=== PATIENT | female | born 1980 | race American Indian/Alaskan Native ===

== ENCOUNTER 2021-12-14 17:38 | Inpatient (IN) | payer OTHER ==
[2021-12-14] MEDS ORDERED: fentaNYL 100 MCG/2 ML INJ IV PRN (18:11)
[2021-12-14] MEDS ORDERED: DINOPROSTONE 10 MG VAG SUPP VG ONE (18:11)
[2021-12-14] MEDS ORDERED: MINERAL OIL 30 ML ORAL LIQD PO PRN (18:11)
[2021-12-14] MEDS ORDERED: LOPERAMIDE 2 MG CAP PO PRN (18:11)
[2021-12-14] MEDS ORDERED: TERBUTALINE 1 MG/1 ML INJ SUB-Q PRN (18:11)
[2021-12-14] MEDS ORDERED: LIDOCAINE (2%) 20 MG/1 ML VIAL 20 ML MDV INFILTRATI ONE (18:11)
[2021-12-14] MEDS ORDERED: METHYLERGONOVINE MALEATE 0.2 MG/ML VIAL IM PRN (18:11)
[2021-12-14] MEDS ORDERED: OXYTOCIN 10 UNIT/1 ML INJ IM PRN (18:11)
[2021-12-14] MEDS ORDERED: ACETAMINOPHEN 325 MG TAB PO PRN (18:11)
[2021-12-14] MEDS ORDERED: ePHEDrine SULFATE 50 MG/1 ML INJ IV PRN (18:11)
[2021-12-14] MEDS ORDERED: NalbUPHINE 10 MG/1 ML INJ IV PRN (18:11)
[2021-12-14] MEDS ORDERED: CARBOPROST TROMETHAMINE 250 MCG/1 ML INJ IM PRN (18:11)
[2021-12-14] MEDS ORDERED: miSOPROStol 200 MCG TAB PR PRN (18:11)
--- NOTE | 2021-12-14 18:19 | History and Physical Report ---
History of Present Illness Date of examination: 12/14/21 Chief complaint: Pt sent from [facility] for delivery d/t uncontrolled HTN @ 37+4 History of present illness: EDC Confirmation: 12/31/2021 Past History : 3 Term Births: 0 Premature Births: 0 Living Children: 0 Para: 0 Mult. Births: 0 Prev : 0 Prev. attempt? 0 Aborta: 0 Elect. Ab: 0 Spont. Ab: 2 Ectopics: 0 # 1 Delivery date: 2015 Weeks Gestation: 8 Delivery type: SAB # 2 Delivery date: 2018 Weeks Gestation: 5-6 Delivery type: SAB Past Medical History: Reviewed and updated today: PCOS Past Surgical History: Reviewed and updated today: negative Family History Summary: Father - Has Family History of Hypertension - Entered On: 08/30/2021 General Comments - FH: Mother - HTN Social History: Patient is Smoking History: Patient has never smoked. 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 % No Dietary Counseling Reason: pn yes Alcohol Use: no Drug Use: no Past Medical History Anesthesia Complications: negative Anemia: negative Autoimmune Disorder: negative Bleeding Disorder: negative Blood Transfusions: negative Breast Disease: negative Diabetes: negative Heart Disease: negative Hypertension: negative Hepatitis/Liver Disease: negative Kidney Disease/UTI: negative Neurologic/Epilepsy/Migraines: negative Phlebitis/Varicosities: negative Psychiatric: negative Pulmonary Disease/Asthma: negative Thyroid Disease: negative Hospitalizations: negative 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 Infection History Hx of STD: none HIV Risk Eval: no Hepatitis B Risk Eval: low risk Personal hx. of genital herpes: no Rash, Viral, or Febrile illness since last LMP? no Varicella/Chicken Pox Status: Previous Disease TB Risk: no Genetic History ADVANCED MATERNAL AGE Congenital Heart Defect: Mom: no Dad: no Sahil Disease: Mom: no Dad: no Thalassemia Mom: no Dad: no Neural Tube Defect Mom: no Dad: no Down's Syndrome Mom: no Dad: no Tristan-Sachs Mom: no Dad: no Sickle Cell Disease/Trait Mom: no Dad: no Hemophilia Mom: no Dad: no Muscular Dystrophy Mom: no Dad: no Cystic Fibrosis Mom: no Dad: no Gurpreet Chorea Mom: no Dad: no Mental Retardation Mom: no Dad: no Fragile X Mom: no Dad: no Other Genetic/Chromosomal Disorder Mom: no Dad: no Child w/other defect Mom: no Dad: no Enviromental Exposures Enviromental Exposures Reviewed Xray Exposure: no Medication, drug, or alcohol use since LMP: no Chemical/Other Exposure: no Exposure to Cat Liter: no Hx of Parvovirus (Fifth Disease): no 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 Medications (reviewed today): None Past History Past Medical History: other (see HPI) Past Surgical History: other (see HPI) 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 (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 HPI) Family/Genetic History: other (see HPI) Social history: no significant social history - Obstetrical History Expected Date of Delivery: 12/31/21 Actual Gestation: 37 Week(s) 5 Day(s) : 3 Para: 0 Hx # Term Pregnancies: 0 Number of Pregnancies: 0 Spontaneous Abortions: 2 Induced : 0 Number of Living Children: 0 Medications and Allergies Allergies Allergy/AdvReac Type Severity Reaction Status Date / Time No Known Allergies Allergy Unverified 12/14/21 18:29 Active Meds: Active Medications Acetaminophen (Acetaminophen 325 Mg Tab) 650 mg PO Q4H PRN PRN Reason: Pain, Mild (1-3) Carboprost Tromethamine (Carboprost Tromethamine 250 Mcg/1 Ml Inj) 250 mcg IM ONCE PRN PRN Reason: Uterine Bleeding Dinoprostone (Dinoprostone 10 Mg Vag Supp) 10 mg VG ONCE ONE Stop: 12/14/21 18:12 Ephedrine Sulfate (Ephedrine Sulfate 50 Mg/1 Ml Inj) 10 mg IV Q2M PRN PRN Reason: Hypotension Fentanyl (Fentanyl 100 Mcg/2 Ml Inj) 100 mcg IV Q2H PRN PRN Reason: Pain,Severe (7-10) LABOR PAIN Oxytocin/Sodium Chloride (Pitocin/Ns 30 Unit/500ml) 30 units in 500 mls @ 2 mls/hr IV TITR TAINA; Protocol Lactated Ringer's (Lactated Ringers) 1,000 mls @ 125 mls/hr IV DIRECT TAINA Oxytocin/Sodium Chloride (Pitocin/Ns 30 Unit/500ml) 30 units in 500 mls @ 40 mls/hr IV TITR TAINA; Protocol Labetalol HCl (Labetalol 200 Mg Tab) 200 mg PO BID TAINA Lidocaine (Lidocaine (2%) 20 Mg/1 Ml Vial 20 Ml Mdv) 20 ml INFILTRATI ONCE ONE Stop: 12/14/21 18:12 Loperamide HCl (Loperamide 2 Mg Cap) 2 mg PO ONCE PRN PRN Reason: give with Hemabate Methylergonovine Maleate (Methylergonovine Maleate 0.2 Mg/Ml Vial) 0.2 mg IM ONCE PRN PRN Reason: Uterine Bleeding Mineral Oil (Mineral Oil 30 Ml Oral Liqd) 30 ml PO QHS PRN PRN Reason: Constipation Misoprostol (Misoprostol 200 Mcg Tab) 800 mcg VA ONCE PRN PRN Reason: Uterine Bleeding Nalbuphine HCl (Nalbuphine 10 Mg/1 Ml Inj) 10 mg IV Q2H PRN PRN Reason: Pain, Moderate (4-6) Oxytocin (Oxytocin 10 Unit/1 Ml Inj) 10 unit IM ONCE PRN PRN Reason: Uterine Bleeding Terbutaline Sulfate (Terbutaline 1 Mg/1 Ml Inj) 0.25 mg SUB-Q ONCE PRN PRN Reason: Hyperstimulation/Hypertonicity Review of Systems All systems: negative - Physical Exam Breasts: Positive: normal Abdomen: Positive: normal appearance, soft Genitourinary (Female): Positive: normal external genitalia - Obstetrical FHR: category 1 Uterine Contraction Monitor Mode: External Cervical Dilatation: 2 Cervical Effacement Percentage: 60 station: -2 Uterine Contraction Pattern: Irregular Uterine Tone Measurement Phase: Contraction Uterine Contraction Intensity: Mild Results Result Diagrams: 12/14/21 21:30 12/14/21 21:30 All other labs normal. Assessment and Plan 41y/o @37+4 sent from [facility] for IOL d/t uncontrolled CHTN. GBS neg. - Patient Problems (1) 37 weeks gestation of Current Visit: Yes Status: Acute (2) Advanced maternal age (AMA) in Current Visit: Yes Status: Acute (3) Hypertension affecting in third trimester Current Visit: Yes Status: Acute Plan to address problem: baseline pre-e labs closely monitor b/p and s/s pre-e Labetalol 200mg PO BID IOL with Low dose pitocin tonight, reassess PRN.
[2021-12-14] MEDS ORDERED: OXYTOCIN DRIP 30 UNITS/500 ML BAG IV SCH (19:00)
[2021-12-14] MEDS ORDERED: OXYTOCIN DRIP 30,000 MILLIUNITS/500 ML BAG IV SCH (22:05)
[2021-12-14] MEDS: ALUM-MAG HYDROXIDE-SIMETHICONE 200-200-20MG/5ML ORAL LIQD 30 ML PO PRN (22:41)
[2021-12-14 23:31] LABS: Bilirubin,Urine NEG (Negative); Blood,Urine NEG (Negative); Color,Urine Yellow (Yellow); Hematocrit 36.9 % (30.3-42.9); Hemoglobin 12.6 gm/dl (10.1-14.3); Mean Corpuscular HGB Conc 34 % (30-34); Mean Corpuscular Volume 92 fl (79-97); Platelet Count 239 K/mm3 (140-440); Protein,Urine <15 mg/dL mg/dL (Negative); Red Blood Count 4.03 M/mm3 (3.65-5.03); Red Cell Distribution Width 14.4 % (13.2-15.2); Urobilinogen,Urine < 2.0 mg/dL (<2.0); WBC,Urine < 1.0 /HPF (0.0-6.0)
[2021-12-14 23:48] LABS: Alanine Aminotransferase 21 units/L (7-56)
[2021-12-14] MEDS: OXYTOCIN DRIP 30 UNITS/500 ML BAG IV SCH (23:50)
[2021-12-15 00:37] LABS: Uric Acid 4.4 mg/dL (3.5-7.6)
[2021-12-15] MEDS: ALUM-MAG HYDROXIDE-SIMETHICONE 200-200-20MG/5ML ORAL LIQD 30 ML PO PRN ×3 (02:33→18:34)
--- NOTE | 2021-12-15 08:12 | Progress Note ---
Assessment and Plan Pt smiling and reporting mild contractions. Pt reports recent cervical exam completed by RN. Exam deferred. POC d/w pt. Questions encouraged and answered. Pt verbalizes understanding. Pt reports desires to increase Pitocin and continue IOL this time. Declines am care. Orders given to increase Pitocin per protocol. Continue Labetalol 200mg BID, monitor BP and ssx for worsening status. Dr Toscano to be made aware. - Patient Problems (1) 37 weeks gestation of Current Visit: Yes Status: Acute (2) Advanced maternal age (AMA) in Current Visit: Yes Status: Acute (3) Hypertension affecting in third trimester Current Visit: Yes Status: Acute Subjective - Subjective Date of service: 12/15/21 Principal diagnosis: IUP @37wks, IOL for GHTN without severe features Patient reports: movement normal, contractions, no new complaints, no loss of fluid, no vaginal bleeding Objective - Vital Signs Vital Signs: Vital Signs - 12hr 12/14/21 12/14/21 12/14/21 21:27 21:36 21:41 Temperature 98.7 F Pulse Rate 80 75 Blood Pressure O2 Sat by Pulse 99 97 Oximetry 12/14/21 12/14/21 12/14/21 21:46 21:51 21:56 Temperature Pulse Rate 90 84 88 Blood Pressure O2 Sat by Pulse 97 97 98 Oximetry 12/14/21 12/14/21 12/14/21 22:01 22:06 22:11 Temperature Pulse Rate 101 H 100 H 98 H Blood Pressure O2 Sat by Pulse 97 98 97 Oximetry 12/14/21 12/14/21 12/14/21 22:16 22:21 22:26 Temperature Pulse Rate 96 H 92 H 95 H Blood Pressure O2 Sat by Pulse 96 98 98 Oximetry 12/14/21 12/14/21 12/14/21 22:31 22:36 22:41 Temperature Pulse Rate 105 H 94 H 106 H Blood Pressure 140/98 O2 Sat by Pulse 97 98 98 Oximetry 12/14/21 12/14/21 12/14/21 22:43 22:46 22:51 Temperature Pulse Rate 93 H 98 H 97 H Blood Pressure 140/98 O2 Sat by Pulse 98 97 Oximetry 12/14/21 12/14/21 12/14/21 22:56 23:01 23:06 Temperature Pulse Rate 91 H 89 98 H Blood Pressure O2 Sat by Pulse 97 98 98 Oximetry 12/14/21 12/14/21 12/14/21 23:11 23:16 23:21 Temperature Pulse Rate 79 89 100 H Blood Pressure O2 Sat by Pulse 97 98 98 Oximetry 12/14/21 12/14/21 12/14/21 23:26 23:31 23:36 Temperature Pulse Rate 93 H 95 H 94 H Blood Pressure O2 Sat by Pulse 97 97 97 Oximetry 12/14/21 12/14/21 12/14/21 23:41 23:47 23:52 Temperature Pulse Rate 103 H 99 H 90 Blood Pressure O2 Sat by Pulse 97 96 97 Oximetry 12/14/21 12/14/21 12/15/21 23:57 23:58 00:02 Temperature Pulse Rate 99 H 87 98 H Blood Pressure 145/85 O2 Sat by Pulse 96 94 97 Oximetry 12/15/21 12/15/21 12/15/21 00:07 00:12 00:17 Temperature Pulse Rate 90 99 H 89 Blood Pressure O2 Sat by Pulse 96 97 96 Oximetry 12/15/21 12/15/21 12/15/21 00:22 00:27 00:32 Temperature Pulse Rate 88 85 82 Blood Pressure O2 Sat by Pulse 96 96 96 Oximetry 12/15/21 12/15/21 12/15/21 00:37 00:38 00:42 Temperature Pulse Rate 89 85 78 Blood Pressure O2 Sat by Pulse 94 94 96 Oximetry 12/15/21 12/15/21 12/15/21 00:47 00:52 00:57 Temperature Pulse Rate 84 86 84 Blood Pressure O2 Sat by Pulse 96 96 96 Oximetry 12/15/21 12/15/21 12/15/21 01:02 01:07 01:12 Temperature Pulse Rate 83 100 H 104 H Blood Pressure O2 Sat by Pulse 97 97 97 Oximetry 12/15/21 12/15/21 12/15/21 01:19 01:20 01:24 Temperature Pulse Rate 100 H 88 95 H Blood Pressure 144/73 O2 Sat by Pulse 98 97 Oximetry 12/15/21 12/15/21 12/15/21 01:29 01:34 01:39 Temperature Pulse Rate 92 H 94 H 86 Blood Pressure O2 Sat by Pulse 97 97 97 Oximetry 12/15/21 12/15/21 12/15/21 01:44 01:49 01:54 Temperature Pulse Rate 86 95 H 95 H Blood Pressure O2 Sat by Pulse 97 96 96 Oximetry 12/15/21 12/15/21 12/15/21 01:59 02:04 02:09 Temperature Pulse Rate 88 85 91 H Blood Pressure O2 Sat by Pulse 97 97 96 Oximetry 12/15/21 12/15/21 12/15/21 02:14 02:19 02:24 Temperature Pulse Rate 104 H 99 H 91 H Blood Pressure 132/76 O2 Sat by Pulse 97 96 97 Oximetry 12/15/21 12/15/21 12/15/21 02:29 02:34 02:39 Temperature Pulse Rate 96 H 107 H 92 H Blood Pressure O2 Sat by Pulse 96 97 97 Oximetry 12/15/21 12/15/21 12/15/21 02:44 02:49 02:54 Temperature Pulse Rate 92 H 89 82 Blood Pressure O2 Sat by Pulse 97 97 97 Oximetry 12/15/21 12/15/21 12/15/21 02:59 03:04 03:09 Temperature Pulse Rate 85 84 84 Blood Pressure O2 Sat by Pulse 97 97 97 Oximetry 12/15/21 12/15/21 12/15/21 03:14 03:19 03:24 Temperature Pulse Rate 90 84 81 Blood Pressure O2 Sat by Pulse 97 97 97 Oximetry 12/15/21 12/15/21 12/15/21 03:29 03:34 03:39 Temperature Pulse Rate 82 83 85 Blood Pressure O2 Sat by Pulse 97 97 97 Oximetry 12/15/21 12/15/21 12/15/21 03:44 03:49 03:54 Temperature Pulse Rate 82 85 95 H Blood Pressure O2 Sat by Pulse 97 97 97 Oximetry 12/15/21 12/15/21 12/15/21 03:59 04:04 04:09 Temperature Pulse Rate 93 H 78 85 Blood Pressure O2 Sat by Pulse 98 97 97 Oximetry 12/15/21 12/15/21 12/15/21 04:14 04:19 04:24 Temperature Pulse Rate 80 83 95 H Blood Pressure O2 Sat by Pulse 97 97 97 Oximetry 12/15/21 12/15/21 12/15/21 04:29 04:34 04:37 Temperature Pulse Rate 78 87 81 Blood Pressure 134/69 O2 Sat by Pulse 96 98 94 Oximetry 05/01/3112/15/21 12/15/21 04:39 04:47 04:52 Temperature Pulse Rate 91 H 97 H 86 Blood Pressure O2 Sat by Pulse 97 98 97 Oximetry 12/15/21 12/15/21 12/15/21 04:57 05:02 05:07 Temperature Pulse Rate 84 85 81 Blood Pressure O2 Sat by Pulse 97 97 97 Oximetry 12/15/21 12/15/21 12/15/21 05:09 05:12 05:17 Temperature Pulse Rate 85 85 85 Blood Pressure 169/81 O2 Sat by Pulse 97 97 Oximetry 12/15/21 12/15/21 12/15/21 05:22 05:27 05:32 Temperature Pulse Rate 90 89 84 Blood Pressure O2 Sat by Pulse 97 96 96 Oximetry 12/15/21 12/15/21 12/15/21 05:37 05:38 05:42 Temperature Pulse Rate 83 88 79 Blood Pressure 141/71 O2 Sat by Pulse 96 97 Oximetry 12/15/21 12/15/21 12/15/21 05:47 05:52 05:57 Temperature Pulse Rate 73 82 82 Blood Pressure O2 Sat by Pulse 96 96 97 Oximetry 12/15/21 12/15/21 12/15/21 06:02 06:07 06:08 Temperature Pulse Rate 77 81 85 Blood Pressure 147/76 O2 Sat by Pulse 97 97 Oximetry 12/15/21 12/15/21 12/15/21 06:12 06:17 06:22 Temperature Pulse Rate 93 H 76 82 Blood Pressure O2 Sat by Pulse 97 97 96 Oximetry 12/15/21 12/15/21 12/15/21 06:27 06:32 06:37 Temperature Pulse Rate 85 85 84 Blood Pressure O2 Sat by Pulse 97 96 96 Oximetry 12/15/21 12/15/21 12/15/21 06:38 06:47 06:52 Temperature Pulse Rate 92 H 103 H 93 H Blood Pressure 147/73 O2 Sat by Pulse 97 96 Oximetry 12/15/21 12/15/21 12/15/21 06:57 07:02 07:07 Temperature Pulse Rate 85 89 85 Blood Pressure O2 Sat by Pulse 97 96 97 Oximetry 12/15/21 12/15/21 12/15/21 07:08 07:12 07:17 Temperature Pulse Rate 83 91 H 94 H Blood Pressure 131/60 O2 Sat by Pulse 97 96 Oximetry 12/15/21 12/15/21 12/15/21 07:22 07:27 07:32 Temperature Pulse Rate 83 94 H 90 Blood Pressure O2 Sat by Pulse 97 97 96 Oximetry 12/15/21 12/15/21 12/15/21 07:37 07:38 07:42 Temperature Pulse Rate 92 H 85 86 Blood Pressure 146/65 O2 Sat by Pulse 97 97 Oximetry 12/15/21 12/15/21 12/15/21 07:47 07:52 07:57 Temperature Pulse Rate 85 86 89 Blood Pressure O2 Sat by Pulse 97 96 96 Oximetry 12/15/21 12/15/21 12/15/21 08:02 08:07 08:08 Temperature Pulse Rate 96 H 78 92 H Blood Pressure 144/65 O2 Sat by Pulse 96 95 Oximetry - Exam Lungs: Normal air movement Abdomen: Present: normal appearance, soft, other (gravid). Absent: tenderness, guarding Vulva: both: normal FHR: auscultation normal, category 1 Uterine Contraction Monitor Mode: External Cervical Dilatation: 2 (per RN) Cervical Effacement Percentage: 60 station: -2 Uterine Contraction Pattern: Irregular Uterine Tone Measurement Phase: Resting Extremities: normal - Labs Labs: Abnormal Labs 12/14/21 12/14/21 21:30 21:30 Creatinine 0.5 L Lactate Dehydrogenase 796 H Ur Specific [place] 1.002 L Laboratory Results - last 24 hr 12/14/21 12/14/21 12/14/21 21:30 21:30 21:30 WBC 9.8 RBC 4.03 Hgb 12.6 Hct 36.9 MCV 92 MCH 31 MCHC 34 RDW 14.4 Plt Count 239 Creatinine Estimated GFR Uric Acid AST ALT Lactate Dehydrogenase Urine Color Urine Turbidity Urine pH Ur Specific [place] Urine Protein Urine Glucose (UA) Urine Ketones Urine Blood Urine Nitrite Urine Bilirubin Urine Urobilinogen Ur Leukocyte Esterase Urine WBC (Auto) Urine RBC (Auto) U Epithel Cells (Auto) Syphilis IgG/IgM Ab Nonreactive Blood Type O POSITIVE Antibody Screen Negative 12/14/21 12/14/21 21:30 21:30 WBC RBC Hgb Hct MCV MCH MCHC RDW Plt Count Creatinine 0.5 L Estimated GFR > 60 Uric Acid 4.4 AST 38 ALT 21 Lactate Dehydrogenase 796 H Urine Color Yellow Urine Turbidity Clear Urine pH 7.0 Ur Specific [place] 1.002 L Urine Protein <15 mg/dl Urine Glucose (UA) Neg Urine Ketones Neg Urine Blood Neg Urine Nitrite Neg Urine Bilirubin Neg Urine Urobilinogen < 2.0 Ur Leukocyte Esterase Neg Urine WBC (Auto) < 1.0 Urine RBC (Auto) 1.0 U Epithel Cells (Auto) < 1.0 Syphilis IgG/IgM Ab Blood Type Antibody Screen
[2021-12-15] MEDS: LACTATED RINGERS 1,000 ML IV SCH ×2 (09:10→17:03)
[2021-12-15] MEDS: OXYTOCIN DRIP 30 UNITS/500 ML BAG IV SCH ×6 (12:36→17:14)
--- NOTE | 2021-12-15 18:28 | Progress Note ---
Assessment and Plan Pt offered epidural and declines at this time. SVE performed 3.5/70/-2, Pitocin currently @20mL/hr. POC with risks and benefits of AROM and internal monitor placement d/w pt. Questions encouraged and addressed. Pt verbalizes understanding and agrees at this time. AROM performed, clear fluid, IUPC placed. Pitocin requested to increase per induction protocol. Pt reports desires for epidural at this time. Dr Toscano made aware. - Patient Problems (1) 37 weeks gestation of Current Visit: Yes Status: Acute (2) Advanced maternal age (AMA) in Current Visit: Yes Status: Acute (3) Hypertension affecting in third trimester Current Visit: Yes Status: Acute Plan to address problem: urine protein/creatinine ratio ordered and RN requested to send continue labetalol 200mg PO BID continue to monitor BP and ssx for worsening status Subjective - Subjective Date of service: 12/15/21 Principal diagnosis: IUP@ 37wks, IOL for GHTN without severe features Patient reports: movement normal, contractions, other (pt denies LUTZ, vision changes, blurred vision, spots before eyes, and RUQ pain), no new complaints, no loss of fluid, no vaginal bleeding Objective - Vital Signs Vital Signs: Vital Signs - 12hr 12/15/21 12/15/21 12/15/21 06:32 06:37 06:38 Temperature Pulse Rate 85 84 92 H Respiratory Rate Blood Pressure 147/73 Blood Pressure [Right] O2 Sat by Pulse 96 96 Oximetry 12/15/21 12/15/21 12/15/21 06:47 06:52 06:57 Temperature Pulse Rate 103 H 93 H 85 Respiratory Rate Blood Pressure Blood Pressure [Right] O2 Sat by Pulse 97 96 97 Oximetry 12/15/21 12/15/21 12/15/21 07:02 07:07 07:08 Temperature Pulse Rate 89 85 83 Respiratory Rate Blood Pressure 131/60 Blood Pressure [Right] O2 Sat by Pulse 96 97 Oximetry 12/15/21 12/15/21 12/15/21 07:12 07:17 07:22 Temperature Pulse Rate 91 H 94 H 83 Respiratory Rate Blood Pressure Blood Pressure [Right] O2 Sat by Pulse 97 96 97 Oximetry 12/15/21 12/15/21 12/15/21 07:27 07:32 07:37 Temperature Pulse Rate 94 H 90 92 H Respiratory Rate Blood Pressure Blood Pressure [Right] O2 Sat by Pulse 97 96 97 Oximetry 12/15/21 12/15/21 12/15/21 07:38 07:42 07:47 Temperature Pulse Rate 85 86 85 Respiratory Rate Blood Pressure 146/65 Blood Pressure [Right] O2 Sat by Pulse 97 97 Oximetry 12/15/21 12/15/21 12/15/21 07:52 07:57 08:02 Temperature Pulse Rate 86 89 96 H Respiratory Rate Blood Pressure Blood Pressure [Right] O2 Sat by Pulse 96 96 96 Oximetry 12/15/21 12/15/21 12/15/21 08:07 08:08 08:12 Temperature Pulse Rate 78 92 H 92 H Respiratory Rate Blood Pressure 144/65 Blood Pressure [Right] O2 Sat by Pulse 95 97 Oximetry 12/15/21 12/15/21 12/15/21 08:17 08:39 08:44 Temperature Pulse Rate 84 83 96 H Respiratory Rate Blood Pressure Blood Pressure [Right] O2 Sat by Pulse 98 98 97 Oximetry 12/15/21 12/15/21 12/15/21 08:47 08:49 08:54 Temperature Pulse Rate 80 85 77 Respiratory Rate Blood Pressure 122/73 Blood Pressure [Right] O2 Sat by Pulse 97 97 Oximetry 12/15/21 12/15/21 12/15/21 08:59 09:04 09:08 Temperature Pulse Rate 69 71 82 Respiratory Rate Blood Pressure 145/80 Blood Pressure [Right] O2 Sat by Pulse 97 97 Oximetry 12/15/21 12/15/21 12/15/21 09:09 09:14 09:19 Temperature Pulse Rate 99 H 86 88 Respiratory Rate Blood Pressure Blood Pressure [Right] O2 Sat by Pulse 97 98 97 Oximetry 12/15/21 12/15/21 12/15/21 09:24 09:29 09:34 Temperature Pulse Rate 77 78 94 H Respiratory Rate Blood Pressure Blood Pressure [Right] O2 Sat by Pulse 97 96 96 Oximetry 12/15/21 12/15/21 12/15/21 09:38 09:39 09:44 Temperature Pulse Rate 74 74 79 Respiratory Rate Blood Pressure 118/68 Blood Pressure [Right] O2 Sat by Pulse 97 97 Oximetry 12/15/21 12/15/21 12/15/21 09:49 09:54 09:59 Temperature Pulse Rate 75 76 78 Respiratory Rate Blood Pressure Blood Pressure [Right] O2 Sat by Pulse 97 97 97 Oximetry 12/15/21 12/15/21 12/15/21 10:04 10:08 10:09 Temperature Pulse Rate 71 78 83 Respiratory Rate Blood Pressure 109/61 Blood Pressure [Right] O2 Sat by Pulse 98 98 Oximetry 12/15/21 12/15/21 12/15/21 10:14 10:26 10:31 Temperature Pulse Rate 76 70 78 Respiratory Rate Blood Pressure Blood Pressure [Right] O2 Sat by Pulse 98 99 99 Oximetry 12/15/21 12/15/21 12/15/21 10:36 10:40 10:41 Temperature Pulse Rate 68 69 68 Respiratory Rate Blood Pressure 122/76 Blood Pressure [Right] O2 Sat by Pulse 98 98 Oximetry 12/15/21 12/15/21 12/15/21 10:46 10:51 10:56 Temperature Pulse Rate 65 69 71 Respiratory Rate Blood Pressure Blood Pressure [Right] O2 Sat by Pulse 99 98 98 Oximetry 12/15/21 12/15/21 12/15/21 11:01 11:06 11:08 Temperature Pulse Rate 73 68 82 Respiratory Rate Blood Pressure 129/73 Blood Pressure [Right] O2 Sat by Pulse 97 98 Oximetry 12/15/21 12/15/21 12/15/21 11:11 11:16 11:21 Temperature Pulse Rate 89 78 76 Respiratory Rate Blood Pressure Blood Pressure [Right] O2 Sat by Pulse 97 98 97 Oximetry 12/15/21 12/15/21 12/15/21 11:26 11:31 11:36 Temperature Pulse Rate 78 73 82 Respiratory Rate Blood Pressure Blood Pressure [Right] O2 Sat by Pulse 98 98 97 Oximetry 12/15/21 12/15/21 12/15/21 11:38 11:41 11:46 Temperature Pulse Rate 75 82 78 Respiratory Rate Blood Pressure 123/67 Blood Pressure [Right] O2 Sat by Pulse 98 98 Oximetry 12/15/21 12/15/21 12/15/21 11:51 11:56 12:01 Temperature Pulse Rate 97 H 80 69 Respiratory Rate Blood Pressure Blood Pressure [Right] O2 Sat by Pulse 97 98 97 Oximetry 12/15/21 12/15/21 12/15/21 12:06 12:08 12:11 Temperature Pulse Rate 74 86 88 Respiratory Rate Blood Pressure 132/80 Blood Pressure [Right] O2 Sat by Pulse 98 97 Oximetry 12/15/21 12/15/21 12/15/21 12:16 12:21 12:38 Temperature Pulse Rate 74 78 94 H Respiratory Rate Blood Pressure Blood Pressure [Right] O2 Sat by Pulse 96 96 99 Oximetry 12/15/21 12/15/21 12/15/21 12:43 12:48 12:53 Temperature Pulse Rate 92 H 86 91 H Respiratory Rate Blood Pressure Blood Pressure [Right] O2 Sat by Pulse 98 96 96 Oximetry 12/15/21 12/15/21 12/15/21 12:58 13:03 13:08 Temperature Pulse Rate 68 85 79 Respiratory Rate Blood Pressure Blood Pressure [Right] O2 Sat by Pulse 96 96 95 Oximetry 12/15/21 12/15/21 12/15/21 13:09 13:13 13:18 Temperature Pulse Rate 73 75 77 Respiratory Rate Blood Pressure 134/77 Blood Pressure [Right] O2 Sat by Pulse 97 97 Oximetry 12/15/21 12/15/21 12/15/21 13:23 13:28 13:33 Temperature Pulse Rate 77 78 77 Respiratory Rate Blood Pressure Blood Pressure [Right] O2 Sat by Pulse 97 96 97 Oximetry 12/15/21 12/15/21 12/15/21 13:38 13:43 13:48 Temperature Pulse Rate 92 H 75 69 Respiratory Rate Blood Pressure 120/79 Blood Pressure [Right] O2 Sat by Pulse 97 98 98 Oximetry 12/15/21 12/15/21 12/15/21 13:53 13:58 14:03 Temperature Pulse Rate 72 72 67 Respiratory Rate Blood Pressure Blood Pressure [Right] O2 Sat by Pulse 98 98 97 Oximetry 12/15/21 12/15/21 12/15/21 14:08 14:09 14:13 Temperature Pulse Rate 73 70 74 Respiratory Rate Blood Pressure 110/70 Blood Pressure [Right] O2 Sat by Pulse 98 98 Oximetry 12/15/21 12/15/21 12/15/21 14:18 14:24 14:29 Temperature Pulse Rate 71 70 79 Respiratory Rate Blood Pressure Blood Pressure [Right] O2 Sat by Pulse 97 97 98 Oximetry 12/15/21 12/15/21 12/15/21 14:34 14:39 14:44 Temperature Pulse Rate 83 70 85 Respiratory Rate Blood Pressure Blood Pressure [Right] O2 Sat by Pulse 98 98 97 Oximetry 12/15/21 12/15/21 12/15/21 14:49 15:00 15:05 Temperature Pulse Rate 81 72 Respiratory Rate Blood Pressure Blood Pressure [Right] O2 Sat by Pulse 98 99 98 Oximetry 12/15/21 12/15/21 12/15/21 15:10 15:15 15:20 Temperature Pulse Rate 66 77 73 Respiratory Rate Blood Pressure Blood Pressure [Right] O2 Sat by Pulse 99 98 98 Oximetry 12/15/21 12/15/21 12/15/21 15:25 15:30 15:34 Temperature Pulse Rate 65 77 77 Respiratory Rate Blood Pressure 133/76 Blood Pressure [Right] O2 Sat by Pulse 98 98 Oximetry 12/15/21 12/15/21 12/15/21 15:35 15:40 15:45 Temperature Pulse Rate 67 85 77 Respiratory Rate Blood Pressure Blood Pressure [Right] O2 Sat by Pulse 97 98 97 Oximetry 12/15/21 12/15/21 12/15/21 15:50 15:55 16:00 Temperature Pulse Rate 79 79 80 Respiratory Rate Blood Pressure Blood Pressure [Right] O2 Sat by Pulse 96 98 99 Oximetry 12/15/21 12/15/21 12/15/21 16:05 16:09 16:10 Temperature 98 F Pulse Rate 72 70 Respiratory Rate Blood Pressure Blood Pressure [Right] O2 Sat by Pulse 98 98 Oximetry 12/15/21 12/15/21 12/15/21 16:15 16:20 16:25 Temperature Pulse Rate 71 79 67 Respiratory Rate Blood Pressure Blood Pressure [Right] O2 Sat by Pulse 98 98 98 Oximetry 12/15/21 12/15/21 12/15/21 16:30 16:35 16:40 Temperature Pulse Rate 72 85 68 Respiratory Rate Blood Pressure Blood Pressure [Right] O2 Sat by Pulse 98 98 98 Oximetry 12/15/21 12/15/21 12/15/21 16:45 16:50 16:55 Temperature Pulse Rate 68 70 80 Respiratory Rate Blood Pressure Blood Pressure [Right] O2 Sat by Pulse 98 98 98 Oximetry 12/15/21 12/15/21 12/15/21 17:03 17:08 17:13 Temperature Pulse Rate 82 68 70 Respiratory Rate Blood Pressure Blood Pressure [Right] O2 Sat by Pulse 98 98 97 Oximetry 12/15/21 12/15/21 12/15/21 17:17 17:18 17:23 Temperature 98.9 F Pulse Rate 72 69 68 Respiratory 16 Rate Blood Pressure 140/77 Blood Pressure 140/77 [Right] O2 Sat by Pulse 97 97 96 Oximetry 12/15/21 12/15/21 12/15/21 17:28 17:33 18:14 Temperature Pulse Rate 69 72 74 Respiratory Rate Blood Pressure Blood Pressure [Right] O2 Sat by Pulse 98 98 99 Oximetry 12/15/21 12/15/21 18:19 18:24 Temperature Pulse Rate 73 88 Respiratory Rate Blood Pressure Blood Pressure [Right] O2 Sat by Pulse 98 100 Oximetry - Exam Lungs: Normal air movement Abdomen: Present: soft. Absent: tenderness Vulva: both: normal FHR: auscultation normal, category 1 Uterine Contraction Monitor Mode: External Cervical Dilatation: 3.5 Cervical Effacement Percentage: 60 station: -2 Uterine Contraction Pattern: Regular Uterine Tone Measurement Phase: Resting Extremities: normal - Labs Labs: Abnormal Labs 12/14/21 12/14/21 21:30 21:30 Creatinine 0.5 L Lactate Dehydrogenase 796 H Ur Specific [place] 1.002 L Laboratory Results - last 24 hr 12/14/21 12/14/21 12/14/21 21:30 21:30 21:30 WBC 9.8 RBC 4.03 Hgb 12.6 Hct 36.9 MCV 92 MCH 31 MCHC 34 RDW 14.4 Plt Count 239 Creatinine Estimated GFR Uric Acid AST ALT Lactate Dehydrogenase Urine Color Urine Turbidity Urine pH Ur Specific [place] Urine Protein Urine Glucose (UA) Urine Ketones Urine Blood Urine Nitrite Urine Bilirubin Urine Urobilinogen Ur Leukocyte Esterase Urine WBC (Auto) Urine RBC (Auto) U Epithel Cells (Auto) Syphilis IgG/IgM Ab Nonreactive SARS-CoV-2 (PCR) Blood Type O POSITIVE Antibody Screen Negative 12/14/21 12/14/21 12/15/21 21:30 21:30 10:35 WBC RBC Hgb Hct MCV MCH MCHC RDW Plt Count Creatinine 0.5 L Estimated GFR > 60 Uric Acid 4.4 AST 38 ALT 21 Lactate Dehydrogenase 796 H Urine Color Yellow Urine Turbidity Clear Urine pH 7.0 Ur Specific [place] 1.002 L Urine Protein <15 mg/dl Urine Glucose (UA) Neg Urine Ketones Neg Urine Blood Neg Urine Nitrite Neg Urine Bilirubin Neg Urine Urobilinogen < 2.0 Ur Leukocyte Esterase Neg Urine WBC (Auto) < 1.0 Urine RBC (Auto) 1.0 U Epithel Cells (Auto) < 1.0 Syphilis IgG/IgM Ab SARS-CoV-2 (PCR) Negative Blood Type Antibody Screen
[2021-12-15] MEDS ORDERED: LACTATED RINGERS 250 ML IV SOLN IV ONE (19:20)
[2021-12-15] MEDS ORDERED: NALOXONE 2 MG/2 ML INJ IV PRN (19:20)
[2021-12-15] MEDS ORDERED: diphenhydrAMINE 50 MG/ML VIAL IV PRN (19:20)
[2021-12-15] MEDS ORDERED: NalbUPHINE 10 MG/1 ML INJ IV PRN (19:20)
[2021-12-15] MEDS ORDERED: ePHEDrine SULFATE 50 MG/1 ML INJ IV PRN (19:20)
[2021-12-15] MEDS ORDERED: ONDANSETRON 4 MG/2 ML INJ IV PRN (19:20)
--- NOTE | 2021-12-15 19:58 | Anesthesia Consultation ---
Anesthesia Consult and Med Hx Date of service: 12/15/21 - Airway Anesthetic Teeth Evaluation: Good ROM Head & Neck: Adequate Mental/Hyoid Distance: Adequate Mallampati Class: Class II Intubation Access Assessment: Probably Good - Pulmonary Exam CTA: Yes - Cardiac Exam Cardiac Exam: RRR - Pre-Operative Health Status ASA Pre-Surgery Classification: ASA2 Proposed Anesthetic Plan: Epidural - Pulmonary Hx Smoking: No Hx Asthma: No COPD: No Hx Pneumonia: No Hx Sleep Apnea: No - Cardiovascular System Hx Hypertension: Yes Hx Heart Attack/AMI: No Hx Angina: No - Central Nervous System Hx Seizures: No Hx Psychiatric Problems: No - Gastrointestinal Hx Gastroesophageal Reflux Disease: No - Endocrine Hx Renal Disease: No Hx End Stage Renal Disease: No Hx Liver Disease: No Hx Insulin Dependent Diabetes: No Hx Non-Insulin Dependent Diabetes: No Hx Hypothyroidism: No Hx Hyperthyroidism: No - Hematic Hx Anemia: No Hx Sickle Cell Disease: No - Other Systems Hx Alcohol Use: No
--- NOTE | 2021-12-15 19:59 | Progress Note ---
Labor Epidural - Labor Epidural Start Time: 19:38 Stop Time: 19:52 Performed by:: COTY BROWNE Procedure: Patient is requesting epidural for labor and pain. H&P, labs were reviewed. Patient IDed, all questions and concerns were answered, and consent was signed. Timeout was performed at bedside. Patient in sitting position. Sterile prep and drape was performed. 3ml of 1% lidocaine skin wheal at L[3]- L [4]. 17- gauge Tuohy epidural needle was advanced to loss of resistance with air technique 7cm. Negative CSF negative blood. Epidural catheter advanced to [12] centimeters. [negative] Aspiration [negative] test dose. Sterile dressing applied. Patient tolerated procedure.
[2021-12-15] MEDS ORDERED: fentaNYL-BUPIV 2 MCG/ML-0.125% 200 MCG/100 ML BAG EPIDURAL SCH (20:00)
[2021-12-15 22:46] LABS: Creatinine,Urine 39.9 mg/dL (0.1-20.0); Protein/Creatinine Ratio,Urine 0.15
[2021-12-16] MEDS ORDERED: LIDOCAINE (2%) 20 MG/1 ML VIAL 20 ML MDV INFILTRATI ONE (00:04)
--- NOTE | 2021-12-16 01:38 | Procedure Note ---
OB Delivery Note - Delivery Date of Delivery: 12/16/21 Surgeon: JUAN DAVID OCONNOR Estimated blood loss: 300cc - Vaginal Delivery presentation: vertex Delivery position: OP Intrapartum events: extend. bradycardia, mult.variable deceleratio Delivery induction: oxytocin Delivery augmentation: rupture of membranes, pitocin Delivery monitor: external FHT, external uterine, internal FHT, internal uterine Route of delivery: Delivery placenta: spontaneous (intact) Episiotomy: midline (d/t bradycardia) Delivery laceration: 3rd degree (partial) Delivery repair: vicryl Anesthesia: local, epidural Delivery comments: Multiple variable decels noted with push, variability became decreased with bradycardia, episiotomy performed with pushing and delivery of OP cephalic position. Partial 3rd laceration noted after delivery. Perineum was anesthetized with 2% lidocaine w/o epi and the sphincter capsule closed with 2-0 vicryl. Then 2nd degree defect closed in the usual fashion, no rectal/anal sutures palpated. Hemostasis noted, FF below umbilicus. Patient stable. - Infant A at 1 minute: 8 at 5 minutes: 9 Gender: Male (7#11oz)
[2021-12-16] MEDS ORDERED: ONDANSETRON 4 MG/2 ML INJ IV PRN (04:02)
[2021-12-16] MEDS ORDERED: PROMETHAZINE 25 MG RECT SUPP PR PRN (04:02)
[2021-12-16] MEDS ORDERED: MAGNESIUM HYDROXIDE (MOM) ORAL LIQD UDC PO PRN (04:02)
[2021-12-16] MEDS ORDERED: LANOLIN/ZINC/DIMETHICONE (LANSINOH) 7 GM TP PRN (04:02)
[2021-12-16] MEDS ORDERED: HYDROCORTISONE 25 MG RECTAL SUPP PR PRN (04:02)
[2021-12-16] MEDS ORDERED: ACETAMINOPHEN 325 MG TAB PO PRN (04:02)
[2021-12-16] MEDS ORDERED: oxyCODONE /ACETAMINOPHEN 5-325MG TAB PO PRN (04:02)
[2021-12-16] MEDS ORDERED: diphenhydrAMINE 25 MG CAP PO PRN (04:02)
[2021-12-16] MEDS ORDERED: PROMETHAZINE 25 MG TAB PO PRN (04:02)
[2021-12-16] MEDS: BENZOCAINE/MENTHOL 20/0.5% TOP SPRAY 56 GM TP PRN (06:11)
[2021-12-16] MEDS: IBUPROFEN 800 MG TAB PO SCH ×2 (06:16→20:22)
[2021-12-16] MEDS: WITCH HAZEL/ GLYCERIN PAD TP PRN (06:45)
[2021-12-16] MEDS: SENNOSIDES/DOCUSATE SODIUM 8.6/50 MG TAB PO SCH (10:03)
[2021-12-16] MEDS: DOCUSATE SODIUM 100 MG CAP PO SCH ×2 (10:04→21:36)
[2021-12-16] MEDS: PRENATAL VIT27-FE FUMARATE-FOLIC ACID VIT TAB PO SCH (10:06)
--- NOTE | 2021-12-16 10:40 | Post Anesthesia Evaluation ---
- Post Anesthesia Evaluation Patient Participated: Yes Airway Patent: Yes Stable Respiratory Function: Yes Nausea/Vomiting: No Temp > 96.8F: Yes Pain Manageable: Yes Adequeate Hydration: Yes Anesthesia Complications: No Block Receding Appropriately: Yes Patient on Ventilator: No
[2021-12-16 12:38] LABS: Hematocrit 33.3 % (30.3-42.9); Hemoglobin 11.4 gm/dl (10.1-14.3)
--- NOTE | 2021-12-16 13:10 | Progress Note ---
Assessment and Plan A: 41yo s/p ~9 hours ago Episiotomy at delivery, 3A laceration Meeting goals VSS P: Continue plan of care consult placed - Patient Problems (1) Third degree laceration of perineum during delivery, Current Visit: Yes Status: Acute (2) Vaginal delivery Current Visit: Yes Status: Acute (3) Episiotomy pain Current Visit: Yes Status: Acute (4) Discomfort at episiotomy site Current Visit: Yes Status: Acute (5) Gestational hypertension Current Visit: Yes Status: Acute Subjective - Subjective Date of service: 12/16/21 Principal diagnosis: s/p , partial third degree Patient reports: appetite normal, voiding normally, pain well controlled, flatus, ambulating normally, no dizzy ambulation, no bowel movement : doing well Objective - Vital Signs Latest vital signs: Vital Signs Temp Pulse Resp BP BP Pulse Ox Pulse Ox 12/16/21 08:30 98 F 100 H 18 136/76 99 12/16/21 07:13 18 12/16/21 06:16 20 12/16/21 04:11 98.0 F 99 H 20 136/72 98 98 12/16/21 02:55 103 H 98 12/16/21 02:54 99 H 145/76 12/16/21 02:50 96 H 98 12/16/21 02:45 98 H 97 12/16/21 02:40 99 H 97 12/16/21 02:39 105 H 137/66 12/16/21 02:35 92 H 97 12/16/21 02:30 97 H 98 12/16/21 02:25 101 H 99 12/16/21 02:24 138/83 12/16/21 02:20 105 H 97 12/16/21 02:15 81 97 12/16/21 02:10 81 97 12/16/21 02:09 93 H 143/84 12/16/21 02:05 84 97 12/16/21 02:00 88 97 12/16/21 01:55 94 H 98 12/16/21 01:54 93 H 142/81 12/16/21 01:50 96 H 97 12/16/21 01:45 98 H 98 12/16/21 01:40 109 H 97 12/16/21 01:38 113 H 138/80 12/16/21 01:35 103 H 96 12/16/21 01:30 94 H 97 12/16/21 01:25 99 H 97 12/16/21 01:20 91 H 98 12/16/21 01:15 95 H 98 12/16/21 01:10 87 97 12/16/21 01:08 93 H 126/66 12/16/21 01:05 94 H 96 12/16/21 01:00 94 H 95 12/16/21 00:55 115 H 96 12/16/21 00:50 91 H 98 12/16/21 00:45 99 H 100 12/16/21 00:40 108 H 132/66 97 12/16/21 00:35 96 H 97 12/16/21 00:30 101 H 98 12/16/21 00:25 92 H 100 12/16/21 00:20 88 99 12/16/21 00:15 82 99 12/16/21 00:10 99 H 100 12/16/21 00:08 101 H 132/71 12/16/21 00:05 109 H 100 12/16/21 00:00 98 H 99 12/15/21 23:55 111 H 100 12/15/21 23:50 95 H 99 12/15/21 23:45 102 H 100 12/15/21 23:39 99 H 99 12/15/21 23:34 98 H 100 12/15/21 23:29 115 H 100 12/15/21 23:24 102 H 100 12/15/21 23:19 122 H 99 12/15/21 23:14 87 100 12/15/21 23:10 74 135/76 05 23:09 76 100 12/15/21 23:04 78 100 12/15/21 22:59 77 100 12/15/21 22:54 85 147/69 100 12/15/21 22:49 70 100 12/15/21 22:44 74 99 12/15/21 22:39 87 147/69 100 12/15/21 22:34 85 100 12/15/21 22:29 69 100 12/15/21 22:24 71 100 12/15/21 22:19 87 99 12/15/21 22:14 72 100 12/15/21 22:09 81 100 12/15/21 22:08 73 157/79 05 22:07 73 169/84 05 22:04 79 100 05 21:59 81 100 05 21:56 98.6 F 69 18 132/74 100 0506 21:54 68 100 05 21:52 66 132/74 05 21:50 100 05 21:49 77 100 05 21:44 69 100 05 21:39 81 100 05 21:37 67 140/75 05 21:34 67 100 05 21:29 70 100 05 21:24 71 100 05 21:21 72 142/78 05 21:19 69 100 05 21:14 69 100 05 21:09 65 100 05 21:07 64 129/74 05 21:04 68 100 05 20:59 78 100 05 20:54 64 100 05 20:53 64 131/73 05 20:49 63 100 05 20:44 73 100 05 20:39 65 100 05 20:37 67 144/77 05 20:34 76 100 05 20:29 82 100 05 20:24 63 100 05 20:22 63 133/74 05 20:19 66 100 05 20:14 83 100 05 20:09 72 100 05 20:04 64 100 05 19:59 75 134/80 99 05/06 19:54 66 99 0506 19:49 76 97 0506 19:46 75 140/79 05 19:44 76 98 0506 19:39 82 97 05 19:34 75 99 0506 19:29 70 100 0506 19:26 94 0506 19:24 86 99 05/06 19:19 68 100 05/06/22 19:14 66 98 05/0622 19:09 73 98 05/0622 19:04 71 99 05/0622 19:01 77 94 05/06/22 18:59 67 97 05/06/22 18:54 69 96 05/06/22 18:49 67 95 05/06/22 18:45 76 94 05/06/22 18:44 79 96 05/06/22 18:39 75 99 05/06 18:34 84 100 05/0622 18:29 68 99 05/06/22 18:24 88 100 05/06/22 18:19 73 98 05/06 18:14 74 99 05/0622 17:33 72 98 05/06 17:28 69 98 05/06/22 17:23 68 96 05/06 17:18 69 97 05/0622 17:17 98.9 F 72 16 140/77 140/77 97 05/06 17:13 70 97 05/06 17:08 68 98 05/06 17:03 82 98 05/06 16:55 80 98 05/06/22 16:50 70 98 05/0622 16:45 68 98 05/06/22 16:40 68 98 05/0622 16:35 85 98 05/0622 16:30 72 98 05/0622 16:25 67 98 05/06/22 16:20 79 98 05/0622 16:15 71 98 05/06 16:10 70 98 05/06 16:09 98 F 0506 16:05 72 98 05/06 16:00 80 99 05/06/22 15:55 79 98 05/06/22 15:50 79 96 05/06/22 15:45 77 97 05/06/22 15:40 85 98 05/06/22 15:35 67 97 05/06/22 15:34 77 133/76 05/06/22 15:30 77 98 05/06/22 15:25 65 98 05/06/22 15:20 73 98 05/06/22 15:15 77 98 05/06/22 15:10 66 99 05/06/22 15:05 72 98 05/06/22 15:00 99 05/06/22 14:49 81 98 05/06/22 14:44 85 97 12/15/21 14:39 70 98 12/15/21 14:34 83 98 12/15/21 14:29 79 98 12/15/21 14:24 70 97 12/15/21 14:18 71 97 12/15/21 14:13 74 98 12/15/21 14:09 70 110/70 12/15/21 14:08 73 98 12/15/21 14:03 67 97 12/15/21 13:58 72 98 12/15/21 13:53 72 98 12/15/21 13:48 69 98 12/15/21 13:43 75 98 12/15/21 13:38 92 H 120/79 97 12/15/21 13:33 77 97 12/15/21 13:28 78 96 12/15/21 13:23 77 97 12/15/21 13:18 77 97 12/15/21 13:13 75 97 12/15/21 13:09 73 134/77 12/15/21 13:08 79 95 12/15/21 13:03 85 96 Intake and Output 12/15/21 12/16/21 12/16/21 22:59 06:59 14:59 Intake Total 1026.950 360 240 Output Total 700 Balance 1026.950 -340 240 Intake: IV 1026.950 Lactated Ringers 1,000 ml 985.417 @ 125 mls/hr IV DIRECT [facility] Rx#:[id number] PITOCin/NS 30 UNIT/500ML 41.533 30 units In 500 ml @ 2 mls/hr IV TITR [facility] Rx#: [id number] Oral 240 240 Intake, Free Water 120 Output: Urine 700 Void 700 Other: Total, Intake Amount 240 240 Total, Output Amount 700 # Voids Void 1 1 Estimated Blood Loss 300 - Exam Narrative Exam: w/ gestational hypertension s/p complicated by episiotomy and 3A laceration ~9 hours ago. Upon entering room, pt up to bathroom voiding. sleeping in bassinet and at bedside. Denies chest pain, SOB, headaches, dizziness, NV and heavy vaginal bleeding. VSS. Ambulating and voided x2 without difficulty since delivery, passing gas, has not yet had a bowel movement. Fundus firm, midline, @U/U, scant lochia noted at perineum, denies passing clots. Endorsing mild pain at laceration site, encouraged to continue using ice packs, frequent bladder emptying, sitz baths and PO pain medication as prescribed. Ate breakfast. Pt has not yet breastfed, bottle fed x1. Colostrum not able to be expressed from breasts at time of provider assessment. Encouraged to continue breast stimulation/skin to skin/ massage, as well as hand expression. Educated on colostrum and human management and supply. consult already placed, pending. Breasts: Present: normal Cardiovascular: Present: Regular rate Lungs: Present: Normal air movement Uterus: Present: normal, firm, fundal height at umbilicus Extremities: Present: normal Deep Tendon Reflex Grade: Normal +2 - Labs Labs: Abnormal lab results 12/15/21 Range/Units 21:56 Urine Creatinine 39.9 H (0.1-20.0) mg/dL
[2021-12-16] MEDS ORDERED: ACETAMINOPHEN 500 MG TAB PO PRN (21:25)
[2021-12-17] MEDS: SENNOSIDES/DOCUSATE SODIUM 8.6/50 MG TAB PO SCH (01:51)
[2021-12-17] MEDS: IBUPROFEN 800 MG TAB PO SCH ×2 (03:05→10:12)
[2021-12-17] MEDS ORDERED: TETANUS,DIPH,PERTUSS(ACELL) VACCINE 0.5 ML SYRINGE IM ONE (06:00)
[2021-12-17] MEDS: DOCUSATE SODIUM 100 MG CAP PO SCH (10:12)
[2021-12-17] MEDS: PRENATAL VIT27-FE FUMARATE-FOLIC ACID VIT TAB PO SCH (10:15)
--- NOTE | 2021-12-17 11:34 | Discharge Summary ---
Providers - Providers Date of Admission: 12/14/21 17:39 Date of discharge: 12/17/21 Attending physician: DEVIKA KINCAID MD 12/16/21 04:02 Consult to Establishment Guide [CONS] Routine Reason For Exam: assistance with , SNS Primary care physician: DEVIKA KINCAID MD Hospitalization Delivery: Episiotomy: mediolateral Laceration: 3rd degree Incision: normal, intact Other procedures: none complications: none Discharge diagnosis: IUP at term delivered V[place]leve baby: male Pertinent studies: Discussed how to take a blood pressure at home and when to call the office with questions and concerns. Hospital course: s/p complicated by gestational hypertension, episiotomy and 3rd degree laceration, requesting discharge today. MRBP noted, PO labetalol BID increased from 200mg to 300mg. Denies chest pain, SOB, headache, dizziness, vision changes, RUQ and NVD. Vaginal bleeding moderate, FF below umbilicus. Meeting goals. Ambulating, voiding and passing gas without difficulty. Has not yet had bowel movement. Tolerating PO diet. Pain well managed with current pain medication regimen; encouraged continued ice, sitz baths to the area, rest and ambulation. Condoms for control. To return to office in 1 week for circumcision, blood pressure and laceration check. Pre scriptions and warning signs reviewed. at bedside throughout provider evaluation and discharge teaching. Condition at discharge: Good Disposition: 01 HOME / SELF CARE / HOMELESS - Discharge Diagnoses (1) Third degree laceration of perineum during delivery, Status: Acute (2) Vaginal delivery Status: Acute (3) Episiotomy pain Status: Acute (4) Discomfort at episiotomy site Status: Acute (5) Gestational hypertension Status: Acute Plan - Discharge Medications Prescriptions: Docusate Sodium [Colace] 100 mg PO BID PRN #60 capsule PRN Reason: Constipation Lidocain2.5%/Prilocai2.5% [Emla] 5 gm TP ONCE #1 tube Labetalol HCl [Labetalol 300mg TAB] 300 mg PO BID #90 Ibuprofen [Motrin 800 MG tab] 800 mg PO TID PRN #30 tablet PRN Reason: Pain Sennosides Tab [Senokot] 8.6 mg PO BID #60 tablet - Provider Discharge Summary Activity: routine, no sex for 6 weeks, no heavy lifting 4 weeks, no strenuous exercise Diet: routine Instructions: routine Additional instructions: [] Smoking cessation referral if applicable(refer to patient education folder for contact #) [] Refer to [facility] Booklet Call your doctor immediately for: * Fever > 100.5 * Heavy vaginal bleeding ( >1 pad per hour) * Severe persistent headache * Shortness of breath * Reddened, hot, painful area to leg or breast * Drainage or odor from incision. * Keep incision clean and dry at all times and follow doctor's instructions regarding bathing/showering - Follow up plan Follow up: DEVIKA KINCAID MD [Primary Care Provider] - 12/22/21 (Happy Mother's Day! Congratulations on the of your baby boy. Thank you for allowing us to take care of you. Please call our office to schedule an appointment for Saturday, December 22 for your baby's circumcision, as well as a blood pressure check and a laceration check for you. If you have a LUTZ, blurred vision, spots before your ey es, chest pain, feel like you can't catch your breath, you have to call the office immediately. If you blood pressure is 140/90 or higher after taking your blood pressure, please call the office immedately. Please take all medications as prescribed. Bring your baby's EMLA cream to your appointment next week. Should you have any questions after discharge, please do not hesitate to call us. We look forward to seeing you in the office soon.)
[2021-12-17 13:31] VITALS: BP 135/60
[2021-12-17] MEDS: BENZOCAINE/MENTHOL 20/0.5% TOP SPRAY 56 GM TP PRN (14:49)
[2021-12-17] MEDS: WITCH HAZEL/ GLYCERIN PAD TP PRN (14:50)
== END 2021-12-17 16:30 | disposition home or self-care (01) | DRG 768 ==
LOC: TRG 17:38 → APU 17:38 → TRG 18:28 → LD 21:53 → OB 12-16 04:02
PROVIDERS: ADMIT Student in an Organized Health Care Education/Training Program; ATTEND Student in an Organized Health Care Education/Training Program
PROC: 10E0XZZ Delivery of Products of Conception, External Approach (ICD-10-PCS; principal; 2021-12-16)
PROC: 0DQR0ZZ Repair Anal Sphincter, Open Approach (ICD-10-PCS; 2021-12-16)
PROC: 10907ZC Drainage of Amniotic Fluid, Therapeutic from Products of Conception, Via Natural or Artificial Opening (ICD-10-PCS; 2021-12-16)
PROC: 0W8NXZZ Division of Female Perineum, External Approach (ICD-10-PCS; 2021-12-16)
PROC: 3E0R3BZ Introduction of Anesthetic Agent into Spinal Canal, Percutaneous Approach (ICD-10-PCS; 2021-12-16)
PROC: 00HU33Z Insertion of Infusion Device into Spinal Canal, Percutaneous Approach (ICD-10-PCS; 2021-12-16)
PROC: 3E0234Z Introduction of Serum, Toxoid and Vaccine into Muscle, Percutaneous Approach (ICD-10-PCS; 2021-12-17)
DX: O16.4 Unspecified maternal hypertension, complicating childbirth (principal); Z37.0 Single live birth; O70.20 Third degree perineal laceration during delivery, unspecified; Z3A.37 37 weeks gestation of pregnancy; Z20.822 Contact with and (suspected) exposure to COVID-19; O76 Abnormality in fetal heart rate and rhythm complicating labor and delivery; Z23 Encounter for immunization
CPT/HCPCS: 36415; 81001; 82565; 82570; 83615; 84156; 84450; 84460; 84550; 85014; 85018; 85027; 86592; 86850; 86900; 86901; G0378; J3490; J2590; J7120; U0003